=== PATIENT | female | born 1955 | race Caucasian/White ===

== ENCOUNTER 2018-05-05 00:48 | Emergency (ER) | payer MEDICARE, OTHER ==
[~2018-05-05] VITALS: Ht 165.1 cm; Wt 50.0 kg
[2018-05-05] MEDS ORDERED: IBUPROFEN 400MG TABLET PO ONE (07:00)
[2018-05-05 11:00] VITALS: BP 115/61
== END 2018-05-05 11:43 | disposition home or self-care (01) ==
LOC: ER 00:48
DX: K08.89 Other specified disorders of teeth and supporting structures (principal); K02.9 Dental caries, unspecified; Z90.89 Acquired absence of other organs; Z95.5 Presence of coronary angioplasty implant and graft
CPT/HCPCS: 99283